=== PATIENT | female | born 1990 | race Caucasian/White ===

== ENCOUNTER → 2017-06-23 16:15 | Outpatient (CLI) | payer BC, SELFPAY ==
[2017-06-24 11:13] LABS: Chlamydia Trachomatis by PCR Negative (Negative); Neisserai gonorrhoeae by PCR Negative (Negative); Probe Check PASS; Sample Adequacy Control PASS; Specimen Processing Control PASS
[2017-06-26 14:28] LABS: HPV Reflexed? NOT INDICATED
== END ==
PROVIDERS: Visit Provider Nurse Practitioner Women's Health
DX: Z12.4 Encounter for screening for malignant neoplasm of cervix (principal); Z11.3 Encounter for screening for infections with a predominantly sexual mode of transmission
CPT/HCPCS: 87491; 87591; 88175; G0145

== ENCOUNTER → 2018-06-25 16:27 | Outpatient (CLI) | payer BC, SELFPAY ==
[2018-06-25 14:04] VITALS: BMI 42.7
[2018-06-25 18:29] LABS: Chlamydia Trachomatis by PCR Negative (Negative); Neisserai gonorrhoeae by PCR Negative (Negative); Probe Check PASS; Sample Adequacy Control PASS; Specimen Processing Control PASS
== END ==
PROVIDERS: Referring Provider Nurse Practitioner Women's Health; Visit Provider Nurse Practitioner Women's Health
DX: Z11.3 Encounter for screening for infections with a predominantly sexual mode of transmission (principal)
CPT/HCPCS: 87491; 87591

== ENCOUNTER → 2019-07-18 17:55 | Outpatient (CLI) | payer BC, SELFPAY ==
[2019-07-18 15:08] VITALS: BMI 42.7
[2019-07-18 20:12] LABS: Chlamydia Trachomatis by PCR Negative (Negative); Neisserai gonorrhoeae by PCR Negative (Negative); Probe Check PASS; Sample Adequacy Control PASS; Specimen Processing Control PASS
[2019-07-21 16:08] LABS: HPV Genotype 16, Aptima Negative (Negative)
[2019-07-22 00:44] LABS: HPV APTIMA, High Risk Positive (Negative); HPV Genotype 18,45 Aptima Positive (Negative)
== END ==
PROVIDERS: Referring Provider Nurse Practitioner Women's Health; Visit Provider Nurse Practitioner Women's Health
DX: Z11.3 Encounter for screening for infections with a predominantly sexual mode of transmission (principal); Z12.4 Encounter for screening for malignant neoplasm of cervix
CPT/HCPCS: 87491; 87591; 87624; 88175; G0145

== ENCOUNTER → 2020-07-31 17:08 | Outpatient (CLI) | payer OTHER, SELFPAY ==
[2020-07-31 15:33] VITALS: BMI 42.7
[2020-08-04 03:06] LABS: Chlamydia By Nucleic Acid AMP Negative (Negative)
[2020-08-04 07:35] LABS: Gonococcus By Nucleic Acid AMP Negative (Negative)
[2020-08-06 20:07] LABS: HPV Genotype 16, Aptima Negative (Negative)
[2020-08-06 20:32] LABS: HPV APTIMA, High Risk Positive (Negative); HPV Genotype 18,45 Aptima Negative (Negative)
== END ==
PROVIDERS: Visit Provider Nurse Practitioner Women's Health
DX: Z12.4 Encounter for screening for malignant neoplasm of cervix (principal)
CPT/HCPCS: 87491; 87591; 87624; 88175; G0145

== ENCOUNTER → 2021-08-19 | Outpatient (CLI) | payer OTHER, SELFPAY ==
[2021-08-20 22:06] LABS: Chlamydia By Nucleic Acid AMP Negative (Negative)
[2021-08-21 12:14] LABS: Gonococcus By Nucleic Acid AMP Negative (Negative)
[2021-08-22 13:33] LABS: HPV APTIMA, High Risk Negative (Negative)
== END | disposition home or self-care (01) ==
LOC: LABSPEC 08-20 08:22
PROVIDERS: Referring Provider Nurse Practitioner Women's Health; Visit Provider Nurse Practitioner Women's Health
DX: Z11.3 Encounter for screening for infections with a predominantly sexual mode of transmission (principal); Z12.4 Encounter for screening for malignant neoplasm of cervix
CPT/HCPCS: 87491; 87591; 87624; 88175; G0145

== ENCOUNTER → 2022-08-21 | Outpatient (CLI) | payer OTHER, SELFPAY ==
[2022-08-28 20:07] LABS: HPV APTIMA, High Risk Positive (Negative); HPV Genotype 16, Aptima Negative (Negative); HPV Genotype 18,45 Aptima Positive (Negative)
== END | disposition home or self-care (01) ==
LOC: LABSPEC 16:40
PROVIDERS: Referring Provider Nurse Practitioner Women's Health; Visit Provider Nurse Practitioner Women's Health
DX: Z12.4 Encounter for screening for malignant neoplasm of cervix (principal)
CPT/HCPCS: 87624; 88175; G0145

== ENCOUNTER → 2023-08-25 | Outpatient (CLI) | payer OTHER, SELFPAY ==
[2023-08-29 12:09] LABS: HPV APTIMA, High Risk Negative (Negative)
== END | disposition home or self-care (01) ==
LOC: LABSPEC 16:53
PROVIDERS: Referring Provider Nurse Practitioner Women's Health; Visit Provider Nurse Practitioner Women's Health
DX: Z12.4 Encounter for screening for malignant neoplasm of cervix (principal)
CPT/HCPCS: 87624; 88175; G0145

== ENCOUNTER → 2023-09-23 | Outpatient (CLI) | payer OTHER, SELFPAY ==
--- NOTE | 2023-09-23 14:55 | BI_ITS ---
MAMMOGRAPHY - BILATERAL SCREENING REASON FOR EXAM: Female, 33 years old. Routine annual screening examination. PERTINENT HISTORY: Non-contributory. Prior left breast biopsy. TECHNIQUE: Digital bilateral breast jesus (3D mammographic acquisition) in the CC and MLO projections. 2-D mediolateral oblique (MLO) and craniocaudad (CC) views of both breasts were obtained. CAD: Full Field Digital Mammography with Computer Added Detection was performed. COMPARISON: None. Baseline examination. FINDINGS: Breast Composition: There are scattered areas of fibroglandular density. There are no dominant masses or suspicious calcifications. A tissue clip marker is seen in the upper central portion of the left breast. No other significant abnormalities are identified. BI/SCRN MAMM (CAD)W/JESUS BILAT IMPRESSION: Negative screening mammogram. Yearly followup mammogram recommended. (A) ASSESSMENT CATEGORY: BIRADS Category 2: Benign. A letter regarding these results will be sent to the patient by the facility within 30 days. Approximately 10% of breast cancers are not detected by mammography. A normal mammogram should not delay biopsy of a clinically suspicious abnormality. [id number] Electronically Signed: Malvin Davis MD at 15:30 EDT ,
== END | disposition home or self-care (01) ==
LOC: OPBI 14:55
PROVIDERS: PCP Family Medicine; Referring Provider Nurse Practitioner Women's Health; Visit Provider Nurse Practitioner Women's Health
DX: Z12.31 Encounter for screening mammogram for malignant neoplasm of breast (principal)
CPT/HCPCS: 77063; 77067

== ENCOUNTER → 2024-08-12 | Outpatient (CLI) | payer OTHER, SELFPAY ==
--- NOTE | 2024-08-12 09:50 | US_ITS ---
PROCEDURE: TRANSVAGINAL W/PREG US 08/12/2024 REASON FOR EXAM: SPOTTING IN EARLY . LMP 06/16/2024. JOSE by LMP: 03/22/2025 TECHNIQUE: Transvaginal pelvic ultrasound COMPARISON: None. FINDINGS: Comments: Transvaginal imaging was performed Number of Gestational Sacs: 1 Gestational Sac Shape: Normal Number of Fetuses: 1 Heart Rate: 161 (average) Yolk Sac: Present and unremarkable. Placenta: Presently not well-visualized Uterine Abnormalities: Maternal uterus is unremarkable. The uterus is measured at 9.0 x 5.3 x 4.6 cm. Ovaries / Adnexa: Both maternal ovaries are visualized and unremarkable. In the right ovary is measured at 2.0 x 1.9 x 1.3 cm, and the left and 2.1 x 1.6 x 1.1 cm. DIMENSIONS: Parameter Measurement / EGA [place] Rump Length: 1.10 cm/7 week 2 day Gestational Sac: 1.8 cm/6 week 5 day Yolk Sac: 6 mm. ESTIMATED GESTATIONAL AGE: By Ultrasound: 7 weeks 0 day By LMP: 8 week 2 day ESTIMATED DATE OF DELIVERY: By Ultrasound: 04/01/2025 By LMP: 03/22/2025 US/Transvaginal w/Preg US IMPRESSION: Single live intrauterine , with dates as noted. Reading Location: [address]
== END | disposition home or self-care (01) ==
LOC: US 09:49
PROVIDERS: PCP Family Medicine; Referring Provider Registered Nurse; Visit Provider Registered Nurse
DX: O26.859 Spotting complicating pregnancy, unspecified trimester (principal); Z3A.00 Weeks of gestation of pregnancy not specified
CPT/HCPCS: 76817

== ENCOUNTER 2024-08-22 11:49 | Day surgery (SDC) | payer OTHER, SELFPAY ==
[2024-08-22] VITALS (9 sets, daily range): BP systolic 112–128; BP diastolic 65–81; PULSE 69–87; RESP 14–18; TEMP 36.1–37.2; O2SAT 97–100; BMI 42.7
[2024-08-22] MEDS: Lactated Ringers 1,000 ML 15 ML IV (12:57)
[2024-08-22] MEDS: Doxycycline 100 MG CAPSULE PO (12:58)
--- NOTE | 2024-08-22 13:01 | PCM.PRE.AN2 ---
ASA Classification* ASA Classification ASA Classification: 2 Assessment & Plan Anesthesia* Anesthesia Assessment Anesthesia Assessment: Discussed sedation and/or anesthesia options, risks, benefits, and alternatives with patient/parents/legal guardian/POA. Questions invited. The patient/parents/legal guardian/POA seems to understand and agrees to proceed with anesthesia plan. Reviewed the physical assessment, medical history, allergy history and patient home medications list prior to surgery/procedure/anesthetic and documented any changes. Performed airway and anesthesia risk assessments. 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 When Was Last Pacemaker Check QUESTION #4 FULL TEXT: You/Your Family Experience fever (hyperthermia) with Anesthesia Last Oral Intake Last Oral intake: Last Oral Intake NPO since 19:00 08/22/24 12:49 Meds taken in AM with sips of No 08/22/24 12:49 water? Meds patient instructed to take am of surgery PONV PONV - assistant financial accountant: PONV - assistant financial accountant Female Yes 08/19/24 15:21 HX of Motion Sickness Yes 08/19/24 15:21 HX of N/V After Surgery No 08/19/24 15:21 Non-Smoker Yes 08/19/24 15:21 Duration of Surgery greater No 08/19/24 15:21 than 60 minutes Number of Risk Factors 3 08/19/24 15:21 PONV Score Moderate Risk 08/19/24 15:21 Height & Weight Height & Weight: Anesthesia: Height & Weight Height 5 ft 1 in 08/22/24 12:49 Weight: 102.7 kg 08/22/24 12:49 Body Mass Index (BMI) 42.7 08/22/24 12:49 Respiratory Assessment Respiratory Assessment - assistant financial accountant: Respiratory Tract Infection Hx - assistant financial accountant Hx Respiratory Tract Infection No 08/19/24 15:21 STOP Sleep Apnea STOP Sleep Apnea - assistant financial accountant: STOP Sleep Apnea - assistant financial accountant Hx Hypertension No 08/19/24 15:21 Hx Sleep Apnea No 08/19/24 15:21 CPAP BIPAP Do you snore loudly (louder No 08/19/24 15:21 than talking or can be heard Do you often feel tired/ No 08/19/24 15:21 fatigued/ sleepy during daytime? Has anyone observed you stop No 08/19/24 15:21 breathing during sleep? STOP Results Negative 08/19/24 15:21 QUESTION #5 FULL TEXT : Do you snore loudly (louder than talking or can be heard through closed doors)? 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 Specify any problems Hx of Preganancy in last 3 Yes 08/19/24 15:21 Months Nurse Filling Out Transfusion MGRIFFITH 08/19/24 15:21 & Questions: Date: 08/19/24 08/19/24 15:21 Time: 15:23 08/19/24 15:21 Patient unable to answer at this time (ie. confused, unrespo /Reproduction History /Reproductive History - assistant financial accountant: /Reproductive Hx- assistant financial accountant Hx Now Gestational Age (in weeks): EDC: Hx Hx Para Hx Section SAB Yes 08/19/24 08:44 Active Medications Active Medications: Current Medications Generic Name Dose Route Start Last Admin Trade Name Freq PRN Reason Stop Dose Admin Doxycycline Monohydrate 100 mg 08/22/24 13:00 08/22/24 12:58 Doxycycline 100 Mg Capsule PO 100 mg X1 RODRI Administration Lactated Ringer's 1,000 mls @ 15 mls/hr 08/22/24 12:00 08/22/24 12:57 IV 15 mls/hr .Q48H RODRI Administration PFSH Medical History Shortness of breath on exertion Non-smoker HPV test positive Depression Abnormal Pap smear of cervix Home Medications ?Medication ?Instructions ?Recorded ?Last Taken ?Type Ox Bile 1,000 mg PO DAILY 08/05/24 Unknown History Held on 08/19/24. Instructions: DIARRHEA Triquetra L-methylfolate 5-MTHF 1 mg PO DAILY MOOD 08/05/24 Unknown History plus Methyl B12 docosahexaenoic acid 200 mg 200 mg PO DAILY 08/05/24 Unknown History capsule ( DHA) essential enzymes 1 cap PO DAILY PRN PRN Digestive 08/05/24 Unknown History aide Allergy/AdvReac Type Severity Reaction Status Date / Time No Known Allergies Allergy Verified 08/22/24 12:48 Family History Mother Diabetes Grandfather Diabetes Aunt Diabetes Other Abnormal Pap smear of cervix HPV test positive Hypertension Surgical History History of surgery S/P cholecystectomy S/P left breast biopsy Status post colposcopy Social History adopted: No household members: other details: 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 housing: house current occupational status: employed current occupation: [employer] current occupational exposures/hazards: No pets and animals: Yes (Educated on not managing litterbox) pets and animals: cat(s) and dog(s) history of recent travel: No sexually active: Yes Smoking Status: Never smoker second hand exposure: Yes (BF vapes) alcohol intake: current alcohol intake frequency: holidays/special occasions only details: Not while substance use type: does not use well-balanced diet: about half the time caffeine: Yes eating out: 1-3 times/week during the past year weight has: increased > 10 lbs what type of physical activity do you participate in: none tyrell/anglican: None seatbelt use: always do you feel safe at home: Yes additional social history: BF: Maxwell iLu Review of Systems (Anesthesia) ROS Narrative System reviewed and no additional complaints, except as documented.
[2024-08-22 13:17] LABS: Absolute Lymphocyte Count 2.27 X10^3/uL (0.83-4.51); Absolute Neutrophil Count 6.8 X10^3/uL (2.0-7.7); Basophil# 0.02 X10^3/uL; Basophil% 0.2 % (0-1); Eosinophil# 0.15 X10^3/uL; Eosinophils% 1.5 % (0-5); Hematocrit 40.6 % (37-47); Hemoglobin 14.4 g/dL (12.0-15.0); Lymphocyte # 2.27 X10^3/ul (0.83-4.51); Lymphocyte % 22.9 % (19-41); Mean Corp Hgb Conc 35.5 g/dL (32-36); Mean Corpuscular Hgb 31.7 pg (27.0-32.0); Mean Corpuscular Volume 89.4 fL (81-99); Mean Platelet Vol. 9.8 fl (6.2-12.0); Monocyte# 0.59 X10^3/uL; NRBC Flagged by Analyzer 0 % (0-5); Neutrophil # 6.84 X10^3/uL (2.7-7.7); Neutrophil % 69.1 % (47-70); Platelet Count 273 K/mm3 (150-450); RBC Distribution Width CV 12.3 % (11.6-14.6); Red Blood Count 4.54 M/mm3 (4.2-5.4); White Blood Count 9.9 K/mm3 (4.4-11.0)
--- NOTE | 2024-08-22 13:28 | HP.PCM_ITS ---
History and Physical [facility] [address], [address] [place] [address] OFFICE VISIT Date of Service: 08/19/24 MR#: [id number] Acct: [id number] Name: GALLO JHAVERI Rep #: [id number] : 1990 Provider: ALESSIA Olivia Age/Sex: 33/F Location: [facility] [place] Status: Signed Intake Vital Signs 07/19/2509:18 08/05/2512:38 08/20/2507:27 Height 5 ft 1.5 in 5 ft 1.5 in 5 ft 1.5 in Weight: 228 lb 4 oz BMI 42.4 BP 112/76 Intake Visit Reasons: *EST* NOB LMP 06/15, JOSE 03/22 Chief Complaint: NOB Annual Giving Manager Required: No Is patient in pain?: No Allergies No Known Allergies Allergy (Verified 08/19/24 08:24) Medications ?Medication ?Instructions ?Recorded ?Confirmed ?Type Ox Bile 1,000 mg PO DAILY 08/05/24 08/19/24 Hist ory Triquetra L-methylfolate 5-MTHF PO DAILY 08/05/24 08/19/24 History plus Methyl B12 docosahexaenoic acid 200 mg mg PO 08/05/24 08/19/24 History capsule ( DHA) essential enzymes PO PRN Digestive aide 08/05/24 08/19/24 History Last Menstrual Period: 06/15/24 Zika: Zika virus screening: Negative : Yes PFSH PFSH Medical History Depression HPV test positive Abnormal Pap smear of cervix Surgical History S/P cholecystectomy S/P left breast biopsy Status post colposcopy Family History Mother DiabetesGrandfather DiabetesAunt DiabetesOther Abnormal Pap smear of cervix HPV test positive Hypertension Social History adopted: No household members: other details: 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 housing: house current occupational status: employed current occupation: [employer] current occupational exposures/hazards: No pets and animals: Yes (Educated on not managing litterbox) pets and animals: cat(s) and dog(s) history of recent travel: No sexually active: Yes Smoking Status: Never smoker second hand exposure: Yes (BF vapes) alcohol intake: current alcohol intake frequency: holidays/special occasions only details: Not while substance use type: does not use well-balanced diet: about half the time caffeine: Yes eating out: 1-3 times/week during the past year weight has: increased > 10 lbs what type of physical activity do you participate in: none tyrell/amish: None seatbelt use: always do you feel safe at home: Yes additional social history: BF: Maxwell - Liu History 2 Elective abortions Hx Para 1 Spontaneous abortions 2 Hx # Term Pregnancies Ectopic pregnancies Hx # Pregnancies Multiple births # of living children 0 Past Pregnancies Del. Date Name GA/Weeks Outcome Route Bth Weight Gen Labor Lgth Anesthesia Del Locatn Provider FOB 04/02/24 4 spontaneous 08/19/24 8 spontaneous Delivery Date: 04/02/24 Last Updated by: Robyn Capone RN Chemical HPI *EST* NOB LMP 06/15, JOSE 03/22 Details: GALLO JHAVERI is a 33 year old who presents for New OB visit- no fht noted on US today. SM in to verify Missed AB. Has had light bleeding for last couple weeks and TVUS last week noted FHT and one week behind LMP. No clots or heavy bleeding noted. Discussed medications Vs D&C. OB Visit JOSE Calculator Estimated Delivery Date Method Current WG Current Estimate 03/31/25 Ultrasound #1 8w 0d Other Estimates 03/22/25 LMP (Certain) 9w 2d Estimated Due Date: 03/22/25 Expected Delivery Route/Plan Labor Preferences- CB/BF classes: [] labor support person: [] labor intervention preferences: [] pain management options preferred: [] cut cord/dad catch: [] : [] PP control planned: [] discussed possible routes of delivery and associated risks: [] special requests: [] Specific Issue/Plans Covid status: [] Flu vaccine: [] Tdap vaccine: [] Rhogam: [] LARC form signed: [] Problem list reviewed and updated with the most current plan of care details and appropriate orders placed. Relevant counseling for the gestational age provided. Continue routine care and follow up unless otherwise noted in visit notes/problem list details Initial Weight: 228 lb Date -?-?-?-?-?-?-?-?-?-?-?-?- EGA Weight BP Urine Prot -?-?-?-?-?-?-?-?-?-?-?-?- Glucose FHR FuHt Pres Dilation -?-?-?-?-?-?-?-?-?-?-?-?- Effaced St Visit Note 08/19/24-?-?-?-?-?-?-?-?-?-?-?-?- 8w 0d 228 lb 4 oz(+4 oz) 112/76 -?-?-?-?-?-?-?-?-?-?-?-?- -?-?-?-?-?-?-?-?-?-?-?-?- KW- no fht noted on US today and SM in to verify. measuring 1.9cm -8.3 weeks. D&C discussed Menstrual History Last Menstrual Period: 06/15/24 Reported LMP: definite Normal amount/duration: Yes Frequency in days: 28-30 On hormonal BC at conception: No hCG+: 07/15/24 Antepartum Record Genetic Screening: Congenital Heart Defect: Other, Neural Tube Defect: Other, Hemoglobinopathy Or Carrier: Other, Cystic Fibrosis: Other, Chromosome Abnormality: Other, Brown-Sachs: Other, Hemophilia: Other, Intellectual Disability/Autism: Other, Recurrent Loss/Stillbirth: Other, Other Structural Defect: Other, Other Genetic Disease: Other and Maternal Metabolic Disorder: Other Infection History: Live with someone with TB or Exposed to TB: No, Patient or Partner has history of Genital Herpes: No, Rash or Viral illness since last mentrual period: No, Prior GBS-Infected child: No, History of STD: Yes (HPV), HIV Infection: No, History of Hepatitis: No, Recent travel outside of [place]: No, Concern for hepatitis exposure: No, Varicella immune: Yes (Had chicken pox) and Covid Vaccinated: Yes (Pfizer - no boosters) Medical History Medical History: Positive: Depression/ depression (Depression - stable, no meds), Seasonal allergies, Breast (L breast bx d/t lipoma lump..resolved), Operations/hospitalizations (see surg hx) and History of abnormal pap (see problem list, HPV) and Negative: Diabetes, Hypertension, Heart disease, Auto-immune disorder, Kidney disease/UTI, Neurologic/epilepsy, Psychiatric, Hepatitis/liver disease, Varicosities/phlebitis, Thyroid dysfunction, Trauma/domestic violence, History of blood transfusions, D (Rh) Sensitized, Pulmonary (e.g.,TB,Asthma), Drug/latex allergies/reactions, Top Screw surgery, Anesthetic complications, Uterine anomaly/dae, Infertility, Anti- retroviral treatment, Relevant family history and Other ACOG First Trimester First Trimester: Desire for , Alcohol, Tobacco Cessation, Il licit/Recreational Drug/Substance Use, Intimate Partner Violence, Barriers to care, Unstable Housing, Communication Barriers, Environmental/Work Hazards, Anticipated Course of Care, Toxoplasmosis Precations, Use of Any medications, Sexual activity, Exercise, Dental Care, Sauna/Hot tub use, Seat Belt use, Childbirth classes/Hospital facilities, , Travel, Indications for Ultrasound and Screening for Aneuploidy Second Trimester Second Trimester: Signs and Symptoms of Labor, Selecting a care provider, Reproductive Life Planning & Contreception, Care Planning, Depression/Anxiety and Intimate Partner Violence; Discussed Tobacco Cessation Third Trimester Third Trimester: Pain Management Plans, Labor support person(s), Immediate Larc, Signs and Symptoms of Preeclampsia, Infant Feeding Yes , Education and Family Medical Leave or Disability Forms ROS Const Reports system reviewed and no additional complaints, except as documented, Denies fatigue, Denies headache(s) and Denies lethargy ENT Denies headache(s) Card Reports system reviewed and no additional complaints, except as documented Resp Reports system reviewed and no additional complaints, except as documented GI Reports system reviewed and no additional complaints, except as documented, Denies abdominal pain, Denies constipation, Denies cramping, Denies diarrhea and Denies dyspepsia Reports system reviewed and no additional complaints, except as documented, Denies abnormal vaginal bleeding, Denies difficulty voiding, Denies dyspareunia and Denies dysuria Musc Reports system reviewed and no additional complaints, except as documented Skin/Breast Reports system reviewed and no additional complaints, except as documented Neuro Yes system reviewed and no additional complaints, except as documented and No headache(s) Psych Reports system reviewed and no additional complaints, except as documented, Denies anhedonia and Denies anxiety Endo Reports system reviewed and no additional complaints, except as documented and Denies fatigue Exam Const General: cooperative, healthy appearing and comfortable Neck Neck: normal visual inspection and full ROM Chest Chest palpation & inspection: normal inspection of the chest Breast inspection: normal inspection of the breasts and normal inspection of the axillae Breast palpation: normal palpation of the breasts and normal palpation of the axillae Resp Effort & Inspection: normal respiratory effort and able to speak in complete sentences GI Inspection: normal to inspection Palpation: soft External Female Exam: normal external appearance and normal appearance of the urethra Urethra: normal appearance of the urethra Skin General: no rashes or lesions noted Neuro General: patient alert, patient awake and patient oriented x3 Extrem General: normal to inspection and full ROM Psych Appearance: grossly normal and well kempt Mental Status: mental status grossly normal Mood: congruent mood Affect: normal affect Speech and Movement: speech and movement normal Thought Process: normal Thought Content: normal Coding Level of Care Code Off vis,est,level 4 Diagnoses Missed O02.1 Obesity affecting O99.210 Z34.90 History of miscarriage, currently O09.299 Assessment and Plan Assessment and Plan (1) Missed : Status: Acute Comment: needs additional labs drawn at admission (2) Obesity affecting : Status: Acute Comment: BMI 42.5; HgBA1C ordered w/NOB (3) : Status: Acute Comment: Discussed genetic/carrier testing - undecided (4) History of miscarriage, currently : Status: Acute Comment: Chemical - April 2024 Orders: Orders Thyroid Stim Hormone (TSH) Today O02.1 - Missed Beta-2 Glycoprot IgG, A, M Today N96 - Recurrent loss Lupus Anticoagulant Comp Today N96 - Recurrent loss Anticardiolipin IgG, IgM Today N96 - Recurrent loss Comments After discussing the patient's diagnosis and treatment plan options, patient wishes to proceed with surgical management. I have discussed with the patient the risks, benefits, and alternatives of the procedure which include but are not limited to risks of anesthesia, bleeding, infection, possible damage to bowel, bladder, or surrounding vasculature which could lead to additional surgery to evaluate any complications. Patient agrees to procedure and wishes to proceed. ACOG/uptodate references given for additional information regarding procedure.
--- NOTE | 2024-08-22 13:30 | POC_PTH ---
PATIENT: GALLO JHAVERI [place] [facility] [place] U#:[id number] AGE/SX: 33/F ROOM: RE08/22/[address]: Dr. Rehana Shore MD : 1990 BED: DIS: 08/22/2024 SPEC #: [id number] RECD: 08/22/24 14:19 STATUS: CLAIR MORRISON #: [id number] JUNIOR: 08/22/24 13:[address]: Rehana Shore DEPT: SURGICAL PATHOLOGY RECD BY: Xiang Cotton ENTERED: 08/23/24 08:14 SP TYPE: PROD CONC OTHR DR: Dr. Olimpia Thorne MD Tissues: A - Product of conception, NOS Procedures: Surgery Specimen Level IV HEADER OPERATION: Dilation and curettage, suction, ANORA PRE-OP DIAGNOSIS: Missed TISSUE SUBMITTED: A- Products of conception (ANORA) MICROSCOPIC DIAGNOSIS A. Uterine contents, dilation and suction curettage: * Acutely inflamed and focally necrotic decidua and a few immature placental villi, consistent with products of conception from a missed MICROSCOPIC DESCRIPTION Slides are reviewed. GROSS DESCRIPTION A. Received fresh labeled with the patient's name and date of . Designated as products of conception (Anora) is a 4.1 x 3.5 x 1.0 cm aggregate of cruz-pink soft tissue and mucoid material, including identifiable chorionic villi. A portion of chorionic villi is submitted for ancillary testing (Anora). Flooring Salesperson sections are submitted in [facility] 08/23/2024 CPT:[id number]
--- NOTE | 2024-08-22 13:53 | OP.PCM_ITS ---
Operative Report (Standard) Operative Information RN Documented Start/Stop Times: Operation Date: 08/22/24 13:30 Case Time Into Pre-Op 08/22/24 11:57
--- NOTE | 2024-08-22 13:53 | DCINST_ITS ---
Discharge Instructions Diet Discharge Diet: No restrictions DC O2, CPAP, BIPAP needs Home O2 Discharge instructions: No Dressing / Incision Discharge Activity: Return to Normal Activity, May Shower and May Take a Tub Bath (after 1 week) May resume sexual activity in: 1-2 weeks Weight Bearing Status: Weight bearing as tolerated Lifting Restrictions: none Dressing / Incision Call your doctor if you observe: Fever of 101 or Higher, Using more than 1 pad per hour, Shortness of breath and Uncontrolled pain Follow Up Care Please Follow Up With: Rehana Shore MD When: Call [phone] to schedule appointment. Test Results: Test results from this visit will be discussed in further detail at your follow- up appointment, if applicable. Discharge Plan Admission Attending Provider: Rehana Shore Primary Care Provider: Olimpia Thorne Instructions Print Language: Nepali Discharge Orders/Prescriptions Prescriptions: No Action DHA 200 mg capsule 200 mg PO DAILY essential enzymes 1 cap PO DAILY PRN PRN (Reason: Digestive aide) Ox Bile 1,000 mg PO DAILY Patient Comments: 2cap daily Triquetra L-methylfolate 5-MTHF plus Methyl B12 1 mg PO DAILY Patient Comments: 2 drops per day Referrals / Follow Up: Olimpia Thorne MD [Primary Care Provider] - Disposition Disposition (needs filled in before D/C Order can be placed): Home, Self Care
--- NOTE | 2024-08-22 13:53 | PCM.OPRPT ---
Problems Associated Problem List Diagnoses (1) Missed : (2) H/O dilation and curettage: Procedures Urinary/Genital [id number]: 24057 Surg Trtmt missed Ab, 1TM Operative Report (Standard) Operative Information Date of Procedure: 08/22/24 Pre-Operative Diagnosis: missed ab Post-Operative Diagnosis: same Surgery/Procedure Performed: suction d and c mc kay stitcher: No Type of Anesthesia: General RN Documented Start/Stop Times: Operation Date: 08/22/24 13:30 Case Time Into Pre-Op 08/22/24 11:57 Anesthesia Start 08/22/24 13:38 Into Room 08/22/24 13:38 Procedure Start 08/22/24 13:57 Procedure End 08/22/24 14:01 Procedure Start Time: 13:57 Procedure Stop Time: 14:01 Select all DRAINS/GRAFTS/IMPLANTS that apply: None Estimated Blood Loss: 50 Specimen collected: Yes Description of specimen(s) removed: poc Description of surgery: Patient was taken to the operating room and placed under MAC local anesthesia. She was prepped and draped in the normal sterile fashion the dorsal lithotomy position. Bladder was drained of clear urine and anterior lip of the cervix was grasped and the uterus sounded to []. Cervix was progressively dilated to allow passage of a [] suction curette. Progressive passes were made removing the retained products of conception without complication. Sharp curettage confirmed complete removal of the retained products. All instruments were removed from the vagina and excellent hemostasis was noted and the patient was taken to recovery in stable condition. Surgical Findings: 10 week missed ab Complications Complications: No
[2024-08-22 14:00] LABS: Hemoglobin A1c 5.5 % (<=5.6)
--- NOTE | 2024-08-22 14:35 | PCM.POSTANE2 ---
Anesthesia Postop Eval I Sum Anesthesia Postop Eval I Summary Anesthesia Postop Eval I Summary: Anesthesia Postop Eval I: Assessment Summary Airway patent Spontaneous unlabored respirations Mental status nausea Vomiting Anesthesia Postop Eval I: Fluid Summary Crystalloid volume administer (ml) Colloids volume administered ( ml) Blood Product volume administered (ml) Total IV fluid infused Anesthesia Postop Eval I: Summary Notes Anesthesia Complication Anesthesia Complication Comment: Post-operative progress note Anesthesia: Postop Eval II Evaluation Mental status: Awake and Calm Pain Level: 1 nausea: No Vomiting: No Complications Anesthesia Complication: No
--- NOTE | 2024-08-22 14:35 | PCM.POST.ANE ---
Anesthesia: Postop Eval I Current Vital Signs Temperature: 97 F Pulse Rate: 72 Blood Pressure: 128/65 Respiratory Rate: 15 Pulse Ox: 97 Oxygen Delivery Method: Nasal Cannula Oxygen Flow Rate (L/min): 2 Assessment Airway patent: Yes Spontaneous unlabored respirations: Yes Mental status: Awake and Calm nausea: No Vomiting: No Anesthesia Complication: No Fluid Hydration Crystalloid volume administer (ml): 400 Total IV fluid infused: 400 Progress Note Anesthesia document: Postop Eval 1 completed: Yes
--- NOTE | 2024-08-22 16:21 | PCM.POST.ANE ---
Anesthesia: Postop Eval I Current Vital Signs Temperature: 97 F Pulse Rate: 72 Blood Pressure: 128/65 Respiratory Rate: 18 Pulse Ox: 97 Oxygen Delivery Method: Room Air Assessment Airway patent: Yes Spontaneous unlabored respirations: Yes nausea: No Vomiting: No Anesthesia Complication: No Fluid Hydration Crystalloid volume administer (ml): 1,000 Total IV fluid infused: 1,000 Progress Note Anesthesia document: Postop Eval 1 completed: Yes
[2024-08-27 19:08] LABS: Anti-Cardiolipin Ab, IgG, Qn < 9 GPL U/mL (0-14); Anti-Cardiolipin Ab, IgM, Qn < 9 MPL U/mL (0-12); Beta-2-Glycoprotein I IgA <9 (0-25); Beta-2-Glycoprotein I IgG <9 (0-20); Beta-2-Glycoprotein I IgM <9 (0-32); Dilute Prothrombin Time (dPT) 41.8 sec (0.0-47.6); Dilute Russell Viper Venom 38.2 sec (0.0-47.0); Interpretation Comment: (.); PTT-LA 38.1 sec (0.0-43.5); dPT Confirm Ratio 1.36 Ratio (0.00-1.34)
[2024-09-01 08:13] LABS: Pathology Specimen OB SEE PATHOLOGY REPORT
== END 2024-08-22 15:03 | disposition home or self-care (01) ==
LOC: SDC 11:51 → AC 11:52
PROVIDERS: Advanced Practice Midwife; PCP Family Medicine; Referring Provider Obstetrics & Gynecology; Visit Provider Obstetrics & Gynecology
PROC: (CPT 59820; principal; 2024-08-22 13:15)
DX: O02.1 Missed abortion (principal); E66.9 Obesity, unspecified; N96 Recurrent pregnancy loss
CPT/HCPCS: 59820; 83036; 84443; 85025; 86146; 86147; 86850; 86900; 86901; 88305; J2405

== ENCOUNTER → 2024-09-07 | Outpatient (CLI) | payer OTHER, SELFPAY ==
[2024-09-07 16:02] LABS: hCG Titer Quant., Serum 7 mIU/mL (<9 non-preg)
== END | disposition home or self-care (01) ==
PROVIDERS: PCP Family Medicine; Visit Provider Nurse Practitioner Women's Health
DX: O02.1 Missed abortion (principal)
CPT/HCPCS: 36415; 84702

== ENCOUNTER → 2024-09-16 | Outpatient (CLI) | payer OTHER, SELFPAY ==
[2024-09-16 17:26] LABS: hCG Titer Quant., Serum 1 mIU/mL (<9 non-preg)
== END | disposition home or self-care (01) ==
PROVIDERS: Nurse Practitioner Women's Health; PCP Family Medicine; Visit Provider Obstetrics & Gynecology
DX: O02.1 Missed abortion (principal)
CPT/HCPCS: 36415; 84702

== ENCOUNTER → 2024-10-17 | Outpatient (CLI) | payer OTHER, SELFPAY ==
[2024-10-17 13:13] LABS: hCG Titer Quant., Serum < 1 mIU/mL (<9 non-preg)
== END | disposition home or self-care (01) ==
LOC: BWCLAB 09:18
PROVIDERS: PCP Family Medicine; Referring Provider Obstetrics & Gynecology; Visit Provider Obstetrics & Gynecology
DX: O28.5 Abnormal chromosomal and genetic finding on antenatal screening of mother (principal); Z3A.00 Weeks of gestation of pregnancy not specified
CPT/HCPCS: 36415; 84702